=== PATIENT | female | born 1995 | race Caucasian/White ===

== ENCOUNTER 2019-03-31 15:29 | Emergency (ER) | payer OTHER ==
[~2019-03-31] VITALS: Ht 175.3 cm; Wt 59.0 kg
== END 2019-03-31 19:17 | disposition home or self-care (01) ==
LOC: ED 15:29
DX: N83.201 Unspecified ovarian cyst, right side (principal)
CPT/HCPCS: 76830; 76856; 80053; 81001; 83690; 84703; 85025; 99284-25; J1885; J2405